=== PATIENT | female | born 1955 | race African-American/Black ===

== ENCOUNTER 2018-04-23 10:21 | Outpatient (CLI) | payer OTHER | END 2018-04-23 10:22 | disposition home or self-care (01) | LOC: BICMAMMO 10:21 | PROVIDERS: ATTEND Student in an Organized Health Care Education/Training Program | DX: Z12.31 Encounter for screening mammogram for malignant neoplasm of breast (principal); Z80.3 Family history of malignant neoplasm of breast | CPT/HCPCS: 77067 ==

== ENCOUNTER 2019-04-25 10:53 | Outpatient (CLI) | payer OTHER ==
--- NOTE | 2019-04-25 12:03 | MMO ---
Bilateral MAMMO Bilat Screen [facility]DI. CLINICAL HISTORY: Patient is 64 years old and is seen for screening. The patient has the following family history of breast cancer: cousin female. The patient has no personal history of cancer. The patient has a history of left Excisional Biopsy in 2001 - benign. VIEWS: The views performed were: bilateral craniocaudal and bilateral mediolateral oblique. FILMS COMPARED: The present examination has been compared to prior imaging studies performed at [facility] on 04/16/2014, 04/17/2015, 04/19/2016 and 04/20/2017. This study has been interpreted with the assistance of computer-aided detection. MAMMOGRAM FINDINGS: There are scattered fibroglandular densities. There is a stable mass with associated calcifications seen in the upper-outer region of the left breast. There are no suspicious masses, suspicious calcifications, or new areas of architectural distortion. IMPRESSION: THERE IS NO MAMMOGRAPHIC EVIDENCE OF MALIGNANCY. A ROUTINE FOLLOW-UP MAMMOGRAM IN 1 YEAR IS RECOMMENDED. ACR BI-RADS Category 2 - Benign finding MAMMOGRAPHY NOTE: 1. A negative mammogram report should not delay a biopsy if a dominant of clinically suspicious mass is present. 2. Approximately 10% to 15% of breast cancers are not detected by mammography. 3. Adenosis and dense breasts may obscure an underlying neoplasm. Reported by: TRUDY BLEDSOE MD Electonically Signed: [id number]
== END 2019-04-25 10:54 | disposition home or self-care (01) ==
LOC: BICMAMMO 10:53
PROVIDERS: ATTEND Student in an Organized Health Care Education/Training Program
DX: Z12.31 Encounter for screening mammogram for malignant neoplasm of breast (principal); Z91.89 Other specified personal risk factors, not elsewhere classified; Z80.3 Family history of malignant neoplasm of breast
CPT/HCPCS: 77067

== ENCOUNTER 2020-04-27 11:32 | Outpatient (CLI) | payer OTHER ==
--- NOTE | 2020-04-27 13:27 | MMO ---
Bilateral MAMMO Bilat Screen [facility]DI+[facility]. CLINICAL HISTORY: Patient is 65 years old and is seen for screening. The patient has the following family history of breast cancer: cousin female. The patient has no personal history of cancer. The patient has a history of left Excisional Biopsy in 2001 - benign. VIEWS: The views performed were: bilateral craniocaudal with tomosynthesis and bilateral mediolateral oblique with tomosynthesis. FILMS COMPARED: The present examination has been compared to prior imaging studies performed at [facility] on 04/17/2015, 04/19/2016, 04/20/2017 and 04/25/2019. This study has been interpreted with the assistance of computer-aided detection. MAMMOGRAM FINDINGS: There are scattered fibroglandular densities. There are benign appearing calcifications seen in both breasts. There are no suspicious masses, suspicious calcifications, or new areas of architectural distortion. IMPRESSION: THERE IS NO MAMMOGRAPHIC EVIDENCE OF MALIGNANCY. A ROUTINE FOLLOW-UP MAMMOGRAM IN 1 YEAR IS RECOMMENDED. THE RESULTS OF THIS EXAM WERE SENT TO THE PATIENT. ACR BI-RADS Category 2 - Benign finding MAMMOGRAPHY NOTE: 1. A negative mammogram report should not delay a biopsy if a dominant of clinically suspicious mass is present. 2. Approximately 10% to 15% of breast cancers are not detected by mammography. 3. Adenosis and dense breasts may obscure an underlying neoplasm. Reported by: DENYS MORROW MD Electonically Signed: [id number]
== END 2020-04-27 11:33 | disposition home or self-care (01) ==
LOC: BICMAMMO 11:32
PROVIDERS: ATTEND Family Medicine
DX: Z12.31 Encounter for screening mammogram for malignant neoplasm of breast (principal); Z80.3 Family history of malignant neoplasm of breast; Z91.89 Other specified personal risk factors, not elsewhere classified
CPT/HCPCS: 77063; 77067

== ENCOUNTER 2020-08-04 09:44 | Observation (INO) | payer OTHER ==
[2020-08-04] MEDS ORDERED: Aspirin Chewable 81 MG TAB ONE (10:03)
[2020-08-04] MEDS ORDERED: Nitroglycerin 2% Ointment 1 INCH/1 GM Packet ONE (10:03)
[2020-08-04 10:11] LABS: #Basophils 0.1 thou/uL (0.0-0.2); #Eosinphils 0.1 thou/uL (0.0-0.7); #Monocytes 0.3 thou/uL (0.11-0.59); #Neutrophils 4.3 thou/uL (1.40-6.50); %Eosinophils 1.3 % (0.0-10.0); %Lymphocytes 45.3 % (21.0-51.0); %Neutrophils 49.5 % (42.0-75.0); Hemoglobin 13.2 g/dL (12.0-16.0); Mean Corpuscular HGB CONC 31.8 g/dL (32.0-36.0); Mean Corpuscular Volume 84.9 fL (78.0-98.0); Platelet Count 171 thou/uL (130-400); RBC Distribution Width 14.3 % (11.5-14.5); Red Blood Cell (RBC) Count 4.88 mill/uL (4.20-5.40); White Blood Cell (WBC) Count 8.7 thou/uL (4.8-10.8)
--- NOTE | 2020-08-04 10:17 | RAD ---
RADIOGRAPH CHEST 1 VIEW: DATE: 08/04/2020 HISTORY: 65-year-old female with chest pain and hypertension FINDINGS: There are no airspace densities, pulmonary edema, pneumothorax, or cardiomegaly. The lateral costophr enic angles are sharp. IMPRESSION: No acute cardiopulmonary findings.
[2020-08-04] MEDS ORDERED: Iopamidol-370 76% 500 ML 1 ML ONE (10:28)
[2020-08-04 10:40] LABS: ALT (SGPT) 23 U/L (8-55); AST (SGOT) 18 U/L (5-34); Albumin 4.4 g/dL (3.4-4.8); Alkaline Phosphatase 72 U/L (40-110); Anion Gap 14 mmol/L (10-20); BUN (Urea Nitrogen) 9 mg/dL (9.8-20.1); Bilirubin, Total 0.2 mg/dL (0.2-1.2); Calc. Creatinine Clearance 0 mL/min (70-130); Calcium 9.3 mg/dL (7.8-10.44); Carbon Dioxide 27 mmol/L (23-31); Chloride 106 mmol/L (98-107); Globulin 3.3 g/dL (2.4-3.5); Glucose 160 mg/dL (80-115); Potassium 4.1 mmol/L (3.5-5.1); Protein, Total 7.7 g/dL (5.8-8.1); Sodium 143 mmol/L (136-145)
--- NOTE | 2020-08-04 11:02 | CT ---
EXAM: CTA of the chest HISTORY: Substernal chest pain COMPARISON: None TECHNIQUE: Multiple contiguous axial images were obtained a CTA of the chest with contrast per pulmon jose embolism protocol. 3-D oblique MIP reformats and direct coronal reformats were performed. FINDINGS: HEART: Biventricular cardiomegaly with hypertrophy of the left ventricular wall. There is a trace per icardial effusion. PULMONARY ARTERIES: Normal in caliber without filling defects to suggest pulmonary emboli. MEDIASTINUM: No hilar or mediastinal lymphadenopathy. LUNGS: No focal infiltrates or masses. PLEURAL SPACE: No pleural effusion or pneumothorax. CHEST WALL SOFT TISSUES: Unremarkable VISUALIZED OSSEOUS STRUCTURES: Degenerative changes in the spine. VISUALIZED SUBDIAPHRAGMATIC STRUCTURES: Unremarkable IMPRESSION: No evidence of pulmonary thromboembolism
[2020-08-04 11:18] LABS: Bilirubin Negative (Negative); Blood, Urine Negative (Negative); Clarity Clear (Clear); Glucose, Urine (Dipstick) Normal (Negative); Ketone, Urine Negative (Negative); Leukocyte Negative Leu/uL (Negative); Nitrite Negative (Negative); Protein, Urine (Dipstick) Negative (Neg-Trace); Specific Gravity, Urine 1.027 (1.002-1.036); Urobilinogen Normal mg/dL (Less than 2)
[2020-08-04] MEDS ORDERED: Diltiazem HCl 125 MG, Admixture Fee 1 EACH in Sodium Chloride 0.9% 100 ML IVPB SCH (12:00)
[2020-08-04 12:15] LABS: Amphetamine Not Detected (NotDetected); Barbiturates Screen Not Detected (NotDetected); Benzodiazepine Screen Not Detected (NotDetected); Cocaine Metabolite Screen Not Detected (NotDetected); Medtox Reader # READER 4; Methadone Not Detected (NotDetected); Methamphetamine Not Detected (NotDetected); Opiate Screen Not Detected (NotDetected); Phencyclidine (PCP) Not Detected (NotDetected); THC/Cannabinoid Screen Not Detected (NotDetected); Tricyclic Screen Not Detected (NotDetected)
[2020-08-04 12:16] LABS: Medtox Control Line Valid? VALID (VALID); Oxycodone Screen Not Detected (NotDetected)
[2020-08-04 13:51] LABS: Troponin I Less than 0.010 ng/mL (< 0.028)
[2020-08-04] MEDS ORDERED: Nitroglycerin 0.4 MG TAB (25 Tab Bottle) SL PRN (14:47)
[2020-08-04] MEDS ORDERED: Acetaminophen 325 MG TAB PO PRN (14:47)
[2020-08-04] MEDS ORDERED: Ondansetron ODT 4 MG TAB PO PRN (14:47)
--- NOTE | 2020-08-04 14:47 | PDOC.FPRHP ---
- History of Present Illness Chief Complaint: chest pain History of Present Illness: 65 y/o F with PMHx HTN, HLD, T2DM, obesity, asthma presents for chest pain. Reports upon awaking this AM she felt substernal chest tightness that did not radiate. Associated wheezing without SOB. Pain was not exertional, was not improved with several hours of resting this AM. She took her blood pressure at home, reports it was wnl but her heart rate was 106 which concerned her and why she came to ER. Has not been using her albuterol inhaler today. Has not had similar chest pain in the past. Did not take any medications prior to ER arrival for chest pain today. Previously seen by Dr. Crawford bus washer at [facility] - had cath in 2014 that was reportedly wnl. Hx of AUNDREA, has CPAP but does not wear because it sprays water into her nose. Otherwise reports medication compliance. No known sick contacts. ED Course: ED course: nitro, ASA, 500 cc bolus, diltazem bolus + gtt - Allergies/Adverse Reactions Allergies Allergy/AdvReac Type Severity Reaction Status Date / Time No Known Allergies Allergy Unverified 09/02/19 09:18 - Home Medications Medication Instructions Recorded Confirmed Type Albuterol Sulfate [Proventil Hfa] 2 puff INH Q4H PRN 09/04/14 08/04/20 History Amlodipine Besylate [amLODIPine 10 mg PO DAILY 09/04/14 08/04/20 History Besylate] Aspirin [Aspirin EC] 81 mg PO DAILY 09/04/14 08/04/20 History Atorvastatin Calcium 40 mg PO QPM 09/04/14 08/04/20 History Cetirizine HCl [Zyrtec] 10 mg PO QPM 09/04/14 08/04/20 History Fluticasone Propionate 1 spray EA NARE DAILY 09/04/14 08/04/20 History [Fluticasone Propionate Nasal Happy] Lisinopril 40 mg PO DAILY 09/04/14 08/04/20 History Montelukast Sodium [Singulair] 10 mg PO DAILY 09/04/14 08/04/20 History metFORMIN HCl 1,000 mg PO BID-WM 09/04/14 08/04/20 History Bimatoprost [Lumigan] 1 drop EA EYE DAILY 08/04/20 08/04/20 History Carvedilol [Coreg] 6.25 mg PO BID 08/04/20 08/04/20 History Liraglutide [Victoza 2-Pedrito] 1.8 mg SC DAILY 08/04/20 08/04/20 History Olopatadine HCl 1 drop EA EYE BID 08/04/20 08/04/20 History Timolol Maleate [Timolol Maleate 1 drop EA EYE BID 08/04/20 08/04/20 History 0.5% Ophth SolN] - History PMHx: htn, hld, t2dm, AUNDREA, hx iron deficiency anemia, hx syphilis s/p treatment, hx uterine fibroid PSHx: hysterectomy, tubal ligation FHx: lung cancer (both parents), paternal heart failure, sister heart failure, throat cancer, cousin breast cancer Social: denies tobacco, etoh, drug use; former etoh use in - Review of Systems General: denies: fever/chills, fatigue Eyes: denies: eye pain, vision changes ENT: reports: nasal congestion. denies: rhinorrhea Respiratory: denies: cough, shortness of breath Cardiovascular: reports: chest pain. denies: palpitation, edema Gastrointestinal: reports: constipation. denies: nausea, vomiting, diarrhea, abdominal pain Genitourinary: denies: dysuria, polyuria Skin: denies: rashes Musculoskeletal: denies: pain, arthritis/arthralgias Neurological: denies: syncope, weakness Psychological: reports: depression. denies: anxiety - Vital signs BP: 142/76 HR: 93 RR: 19 Tmax: 98.1 F Pox: 96 % on RA Wt: 108.86 kg - Physical Exam Constitutional: NAD, awake, alert and oriented, other (obese) HEENT: normocephalic and atraumatic, no scleral icterus, grossly normal vision, grossly normal hearing, MMM, other (edentulous, bilateral conjunctival injection) Neck: supple, no LAD Heart: RRR, no murmurs/rubs/gallops, pulses present, no edema Lungs: no respiratory distress, good air movement, no wheezing, no retractions, other (occasional rhonchi bilaterally) Abdomen: soft, non-tender, bowel sounds present Musculoskeletal: normal structure, ROM grossly normal Neurological: no focal deficit Skin: no rash/lesions, good turgor, capillary refill <2 seconds Heme/Lymphatic: no unusual bruising or bleeding Psychiatric: normal mood and affect, good judgment and insight, intact recent and remote memory FMR H&P: Results - Labs Result Diagrams: 08/04/20 09:50 08/04/20 09:50 Lab results: WBC 8.7 thou/uL (4.8-10.8) 08/04/20 09:50 Hgb 13.2 g/dL (12.0-16.0) 08/04/20 09:50 Hct 41.4 % (36.0-47.0) 08/04/20 09:50 MCV 84.9 fL (78.0-98.0) 08/04/20 09:50 Plt Count 171 thou/uL (130-400) 08/04/20 09:50 Neutrophils % 49.5 % (42.0-75.0) 08/04/20 09:50 Sodium 143 mmol/L (136-145) 08/04/20 09:50 Potassium 4.1 mmol/L (3.5-5.1) 08/04/20 09:50 Chloride 106 mmol/L (98-107) 08/04/20 09:50 Carbon Dioxide 27 mmol/L (23-31) 08/04/20 09:50 BUN 9 mg/dL (9.8-20.1) L 08/04/20 09:50 Creatinine 0.66 mg/dL (0.6-1.1) 08/04/20 09:50 Glucose 160 mg/dL (80-115) H 08/04/20 09:50 Calcium 9.3 mg/dL (7.8-10.44) 08/04/20 09:50 Total Bilirubin 0.2 mg/dL (0.2-1.2) 08/04/20 09:50 AST 18 U/L (5-34) 08/04/20 09:50 ALT 23 U/L (8-55) 08/04/20 09:50 Alkaline Phosphatase 72 U/L (40-110) 08/04/20 09:50 B-Natriuretic Peptide 25.1 pg/mL (0-100) 08/04/20 09:50 Serum Total Protein 7.7 g/dL (5.8-8.1) 08/04/20 09:50 Albumin 4.4 g/dL (3.4-4.8) 08/04/20 09:50 Urine Ketones Negative mg/dL (Negative) 08/04/20 11:02 Urine Blood Negative (Negative) 08/04/20 11:02 Urine Nitrite Negative (Negative) 08/04/20 11:02 Ur Leukocyte Esterase Negative [place]/uL (Negative) 08/04/20 11:02 - EKG Interpretation EKG: EKG: sinus rhythm, rate 70s after diltiazem; initial EKG HR 150 FMR H&P: A/P - Plan Atypical chest pain, ACS r/o Tachycardia EKG with rate 150s on presentation to the ED, with possible SVT. s/p diltiazem bolus + gtt in ED, converted to NSR. Repeat EKG with unusual p axis - some inverted p waves, rate improved to 70s and otherwise appears to be regular. Troponin neg x2 and symptoms resolved. Unclear etiology for symptoms. Also consider CPAP non-compliance, asthma exacerbation for possible etiology. Elevated D-dimer in ED, negative CTA. Heart score 4. - admit to obs, monitor on tele - will get stress test in AM - stat EKG and nitro for recurrent chest pain - continue home statin, ACEi - will hold BB for in AM for stress - f/u TSH, lipid panel, A1c AUNDREA Non-compliance with CPAP at home - recommend outpatient pulm f/u to adjust CPAP settings HTN Normotensive. - continue home regimen: coreg, lisinopril, amlodipine HLD - continue home statin - f/u lipid panel T2DM Reportedly well controlled. - continue home metformin, victoza Hx syphilis, treated Hx iron deficiency anemia, labs wnl here Dispo: tele obs, eLOS <48h; likely DC to home if stress test wnl FMR H&P: Upper Level - Pertinent history S: 65yo F presented to ED with chest pain. She states it was substernal and lasted about 15 minutes. She denied any associated symptoms. Had a cath in 2014 for an abnormal stress that was normal. Denies any dyspnea, orthopnea, radiating pain, N/V. Denies any recent illness. Is obese with DM II, HLD, HTN. - Pertinent findings O: Constitutional: NAD HEENT: Normal dentition Heart: RRR, no murmur Lungs: CTAB Abd: Non distended, non tender Ext: No edema or cyanosis Skin: No rash or erythema A/P ACS R/o - negative trop x2 - EKG initially with SVT, next NSR without signficant abnormalities - S/p dilt ggt with conversion to NSR - Tele monitoring for tachycardia - Stress tomorrow Chronic Medical Conditions - Resume home rx as outlined above Dispo: Admit to tele Alfredo Suárez DO - Plan Date/Time: 08/04/20 2933 I, Alfredo Suárez DO, have evaluated this patient and agree with findings/plan as outlined by internet designer resident. Pertinent changes/additions are listed here. Addendum - Attending - Attending Attestation Date/Time: 08/04/20 [id number] I personally evaluated the patient and discussed the management with Dr. Denny Kang I agree with the History, Examination, Assessment and Plan documented above with any addition or exceptions noted below.
[2020-08-04 16:46] LABS: Hemoglobin A1c 7.4 % (4.0-6.0)
[2020-08-04 17:01] LABS: Cardiac Risk 2.6 (Less than 4.5)
[2020-08-04 22:05] VITALS: BMI 41.1
[2020-08-04] MEDS ORDERED: Dextrose 5% in Water 1,000 ML IV PRN (23:19)
[2020-08-04] MEDS ORDERED: Dextrose 50% Abboject 50 ML SYRINGE SLOW IVP PRN (23:19)
[2020-08-04] MEDS ORDERED: HumaLOG 300 UNITS/3 ML VIAL SC PRN ×2 (23:19)
[2020-08-04] MEDS ORDERED: Acetaminophen 500 MG TAB PO PRN (23:20)
[2020-08-05] MEDS ORDERED: Albuterol 200 PUFF (6.7GM INHALER) INH PRN (00:31)
[2020-08-05] MEDS ORDERED: Atorvastatin Calcium 40 MG TAB PO SCH ×2 (00:45→21:00)
[2020-08-05] MEDS ORDERED: Amlodipine 5 MG TAB PO SCH ×3 (00:45→21:00)
[2020-08-05] MEDS ORDERED: Atorvastatin Calcium 20 MG TAB PO SCH ×2 (00:45→21:00)
[2020-08-05 01:20] LABS: SARS-CoV-2 PCR by NAA Not Detected (NotDetected)
[2020-08-05] MEDS ORDERED: Polyvinyl Alcohol 1.4%/Povidone 0.6% Opth Drops EA EYE PRN (03:44)
--- NOTE | 2020-08-05 06:05 | PDOC.FM ---
- Subjective Subjective: No acute overnight events. Denies any chest pain, palpitations, SOB overnight. Feeling well this AM. - Objective Vital Signs & Weight: Vital Signs (12 hours) Temp Pulse Resp BP Pulse Ox 08/05/20 03:35 98.0 F 89 19 135/61 95 08/05/20 02:59 97 08/05/20 00:00 98.1 F 79 16 153/82 H 97 08/04/20 19:20 98.5 F 93 16 132/68 97 08/04/20 18:55 97.3 F L 86 18 134/78 92 L Weight Weight 105.233 kg I&O: 08/03/20 08/04/20 08/05/20 06:59 06:59 06:59 Intake Total 360 Balance 360 Result Diagrams: 08/04/20 09:50 08/05/20 05:49 EKG Reviewed by me: Yes (NSR 80s-90s on tele overnight) Phys Exam - Physical Examination Constitutional: NAD HEENT: moist MMs Neck: supple Respiratory: no wheezing, no rales, clear to auscultation bilateral Cardiovascular: RRR, no significant murmur Gastrointestinal: soft, non-tender Musculoskeletal: no edema, pulses present Neurological: non-focal, moves all 4 limbs Psychiatric: normal affect, A&O x 3 Skin: normal turgor, cap refill <2 seconds Dx/Plan - Plan Plan: Atypical chest pain, ACS r/o Tachycardia EKG with rate 150s on presentation to the ED, with possible SVT. s/p diltiazem bolus + gtt in ED, converted to NSR. Repeat EKG with unusual p axis - some inverted p waves, rate improved to 70s and otherwise appears to be regular. Troponin neg x2 and symptoms resolved. Unclear etiology for symptoms. Also consider CPAP non-compliance, asthma exacerbation for possible etiology. Elevated D-dimer in ED, negative CTA. Heart score 4. TSH and lipid panel wnl, A1c 7.4. - admit to obs, monitor on tele - stress test pending this AM - stat EKG and nitro for recurrent chest pain - continue home statin, ACEi - will hold BB for in AM for stress AUNDREA Non-compliance with CPAP at home - recommend outpatient pulm f/u to adjust CPAP settings HTN Normotensive. - continue home regimen: coreg, lisinopril, amlodipine - will hold coreg this AM for stress HLD - continue home statin - f/u lipid panel T2DM Suboptimal control, Hga1c 7.4%. - continue home metformin, victoza - f/u outpatient for adjustment of diet/medications Hx syphilis, treated Hx iron deficiency anemia, labs wnl here Dispo: tele obs, eLOS <48h; likely DC to home if stress test wnl Addendum - Attending - Attending Attestation Date/Time: 08/05/20 1034 I personally evaluated the patient and discussed the management with Dr. Hartmann. I agree with the History, Examination, Assessment and Plan documented above with any addition or exceptions noted below.
[2020-08-05 06:33] LABS: Anion Gap 15 mmol/L (10-20); BUN (Urea Nitrogen) 7 mg/dL (9.8-20.1); Calc. Creatinine Clearance 157 mL/min (70-130); Calcium 9.1 mg/dL (7.8-10.44); Carbon Dioxide 25 mmol/L (23-31); Chloride 106 mmol/L (98-107); Glucose 134 mg/dL (80-115); Potassium 3.8 mmol/L (3.5-5.1); Sodium 142 mmol/L (136-145)
[2020-08-05] MEDS ORDERED: metFORMIN 500 MG TAB PO SCH (08:00)
[2020-08-05] MEDS ORDERED: Ketotifen Fumarate 0.025% Ophth Soln 5 ml Bottle EA EYE SCH (09:00)
[2020-08-05] MEDS ORDERED: Liraglutide [Victoza 2-Pak] 0.6 MG/0.1 ML Pen.Injctr SC SCH (09:00)
[2020-08-05] MEDS ORDERED: Aspirin 81 mg Enteric Coated Tablet PO SCH (09:00)
[2020-08-05] MEDS ORDERED: Famotidine 20 MG TAB PO SCH (09:00)
[2020-08-05] MEDS ORDERED: Timolol 0.5% Ophth Soln 5 ml Bottle EA EYE SCH (09:00)
[2020-08-05] MEDS ORDERED: Lisinopril 20 MG TAB PO SCH (09:00)
[2020-08-05] MEDS ORDERED: Enoxaparin Sodium 40 MG/0.4 ML SYRINGE SC SCH (09:00)
[2020-08-05] MEDS ORDERED: Regadenoson 0.4 MG/5 ML SYRINGE ONE (10:21)
[2020-08-05 12:22] VITALS: BP 137/65; TEMP 98.2
--- NOTE | 2020-08-05 12:32 | NM ---
Radionucleotide stress only myocardial perfusion scan with CT attenuation correction and SPECT imagin g Left ventricular wall motion evaluation and ejection fraction HISTORY: Chest pain. FINDINGS: Lexiscan protocol. Heterogeneous uptake of radiotracer throughout the left ventricular myoc ardium. No focal perfusion defects. QGS analysis of gated SPECT images shows no focal wall motion abnormalities. Ejection fraction calcul ated at 69%. IMPRESSION : No evidence of ischemia. Normal LVEF.
[2020-08-05] MEDS ORDERED: Latanoprost 0.005% Ophth Soln 2.5 ml Bottle EA EYE SCH (21:00)
--- NOTE | 2020-08-06 08:39 | STRESS ---
Acquisition Time: 2020-08-05 10:54:24 Total Exercise Time: 00:01:00 Test Indications: CHEST PAIN Medications: Protocol: LEXISCAN Max HR: 101 BPM 65% of Pred: 155 BPM Max BP: 126/078 mmHG Max Work Load: 1.0 METS RESTING ECG: NORMAL SINUS RHYTHM AT 85 BPM WITH POOR R-WAVE PROGRESSION SYMPTOMS: NONE NORMAL BP RESPONSE ECTOPY: NONE ECG STRESS: NO SIGNFICANT CHANGES INTERPRETATION: NEGATIVE ECG/AWAIT NUCLEAR IMAGES FOR DEFINITIVE DIAGNOSIS Confirmed by DR. Karen BUSCH ([id number]), movie editor JULIÁN GARCIA ([id number]) on 08/06/2020 8:39:14 AM Referred By: DO. Roque BE Confirmed By:DR. Karen BUSCH
== END 2020-08-05 13:47 | disposition home or self-care (01) ==
LOC: ERS 09:44 → ERHOLD 13:53 → 3SE 18:20
PROVIDERS: ADMIT Family Medicine; ATTEND Family Medicine
DX: R07.89 Other chest pain (principal); R00.0 Tachycardia, unspecified; G47.33 Obstructive sleep apnea (adult) (pediatric); I10 Essential (primary) hypertension; E78.5 Hyperlipidemia, unspecified; E11.9 Type 2 diabetes mellitus without complications; J45.909 Unspecified asthma, uncomplicated; E66.9 Obesity, unspecified; Z68.41 Body mass index [BMI] 40.0-44.9, adult; Z79.82 Long term (current) use of aspirin; Z79.84 Long term (current) use of oral hypoglycemic drugs; Z79.899 Other long term (current) drug therapy; Z20.822 Contact with and (suspected) exposure to COVID-19
CPT/HCPCS: 36415; 36416; 71045; 71275; 78452; 80048; 80053; 80061; 80306; 81003; 83036; 83880; 84443; 84484; 85025; 85379; 87635; 93005; 93017; 94760; 96365; 96376; A9500; G0378; J2785; J3490; Q9967; U0003; U0005

== ENCOUNTER 2020-09-08 19:30 | Outpatient (CLI) | payer OTHER | END 2020-09-08 19:31 | disposition home or self-care (01) | LOC: SLEEPLAB 19:30 | PROVIDERS: ATTEND Family Medicine | DX: G47.33 Obstructive sleep apnea (adult) (pediatric) (principal); R53.83 Other fatigue; E66.9 Obesity, unspecified | CPT/HCPCS: 95811 ==

== ENCOUNTER 2020-09-30 09:53 | Outpatient (CLI) | payer OTHER | END 2020-09-30 09:54 | disposition home or self-care (01) | LOC: CTENTCT 09:53 | PROVIDERS: ATTEND Specialist | DX: G50.1 Atypical facial pain (principal) | CPT/HCPCS: 70486 ==

== ENCOUNTER 2021-05-05 12:00 | Outpatient (CLI) | payer MEDICARE, OTHER | END 2021-05-05 12:01 | disposition home or self-care (01) | LOC: BICMAMMO 12:00 | PROVIDERS: ATTEND Family Medicine | DX: Z12.31 Encounter for screening mammogram for malignant neoplasm of breast (principal); Z80.3 Family history of malignant neoplasm of breast | CPT/HCPCS: 77067 ==

== ENCOUNTER 2022-02-10 10:51 | Outpatient (CLI) | payer OTHER | END 2022-02-10 10:52 | disposition home or self-care (01) | LOC: DTY/OP 10:51 | PROVIDERS: ATTEND Family Medicine | DX: E11.9 Type 2 diabetes mellitus without complications (principal); Z71.3 Dietary counseling and surveillance | CPT/HCPCS: 97802 ==

== ENCOUNTER 2022-07-11 10:18 | Outpatient (CLI) | payer OTHER, MEDICAID | END 2022-07-11 10:19 | disposition home or self-care (01) | LOC: BICMAMMO 10:18 | PROVIDERS: ATTEND Family Medicine | DX: N63.23 Unspecified lump in the left breast, lower outer quadrant (principal); R92.8 Other abnormal and inconclusive findings on diagnostic imaging of breast | CPT/HCPCS: 76642; 77065; G0279 ==

== ENCOUNTER → 2022-07-14 | Day surgery (SDC) | payer OTHER, MEDICAID | END | disposition home or self-care (01) | LOC: BICULT 12:22 | PROVIDERS: ATTEND Family Medicine | PROC: 0H9U3ZX Drainage of Left Breast, Percutaneous Approach, Diagnostic (ICD-10-PCS; principal; 2022-07-14) | PROC: 07B60ZX Excision of Left Axillary Lymphatic, Open Approach, Diagnostic (ICD-10-PCS; 2022-07-14) | DX: C50.812 Malignant neoplasm of overlapping sites of left female breast (principal); R59.0 Localized enlarged lymph nodes; Z17.0 Estrogen receptor positive status [ER+] | CPT/HCPCS: 19083; 38505; 88305; 88342; 88361 ==

== ENCOUNTER 2022-07-29 11:33 | Outpatient (CLI) | payer OTHER, MEDICAID ==
[2022-07-29 14:18] LABS: Anion Gap 14 mmol/L (10-20); BUN (Urea Nitrogen) 10 mg/dL (9.8-20.1); Calc. Creatinine Clearance 0 mL/min (70-130); Calcium 9.6 mg/dL (7.8-10.44); Carbon Dioxide 24 mmol/L (23-31); Chloride 110 mmol/L (98-107); Estimated GFR 88; Glucose 138 mg/dL (80-115); Sodium 144 mmol/L (136-145)
[2022-07-29 14:21] LABS: Hemoglobin 11.6 g/dL (12.0-15.5); Mean Corpuscular HGB CONC 30.1 g/dL (32.0-36.0); Mean Corpuscular Hemoglobin 25.1 pg (27.0-33.0); Mean Corpuscular Volume 83.5 fl (81.6-98.3); Mean Platelet Volume 12.7 fl (7.4-10.4); Platelet Count 201 10x3/uL (150-450); RBC Distribution Width 15.6 % (11.5-14.5); Red Blood Cell (RBC) Count 4.62 10x6/uL (3.90-5.03); White Blood Cell (WBC) Count 6.9 10x3/uL (3.5-10.5)
== END 2022-07-29 11:34 | disposition home or self-care (01) ==
LOC: LABBT 11:33
PROVIDERS: ATTEND Specialist
DX: Z01.818 Encounter for other preprocedural examination (principal); C50.912 Malignant neoplasm of unspecified site of left female breast
CPT/HCPCS: 80048; 85027; 93005; 93010

== ENCOUNTER 2022-08-01 09:49 | Day surgery (SDC) | payer OTHER, MEDICAID ==
[2022-07-29 13:53] VITALS: BMI 35.9
[2022-08-01] MEDS ORDERED: Bupivacaine/Epinephrine 0.25% 30 ML VIAL ONE (10:33)
[2022-08-01] MEDS ORDERED: Lidocaine 1% (PF) 30 ML VIAL ONE (10:33)
[2022-08-01] MEDS ORDERED: Ketorolac Tromethamine 30 MG/ML VIAL ONE (10:47)
[2022-08-01] MEDS ORDERED: Acetaminophen 500 MG TAB ONE (10:47)
[2022-08-01] MEDS ORDERED: fentaNYL PF 100 MCG/2 ML SYRINGE ONE (12:42)
[2022-08-01] MEDS ORDERED: CEFAZOLIN 2 GM VIAL ONE (12:55)
[2022-08-01] MEDS ORDERED: Sodium Chloride 0.9% 100 ML ONE (12:55)
[2022-08-01] MEDS ORDERED: PHENYLEPHRINE-NS 100 MCG/ML 10 ML SYRINGE ONE (13:07)
[2022-08-01] MEDS ORDERED: PROPOFOL 200 MG/20 ML VIAL ONE (13:07)
[2022-08-01] MEDS ORDERED: Lidocaine 1% PF 5 ML VIAL ONE (13:07)
[2022-08-01] MEDS ORDERED: Ondansetron PF 4 MG/2 ML Vial ONE (13:07)
== END 2022-08-01 15:16 | disposition home or self-care (01) ==
LOC: SDC 09:49
PROVIDERS: ATTEND Specialist
PROC: 0JH60WZ Insertion of Totally Implantable Vascular Access Device into Chest Subcutaneous Tissue and Fascia, Open Approach (ICD-10-PCS; principal; 2022-08-01)
PROC: 02HV33Z Insertion of Infusion Device into Superior Vena Cava, Percutaneous Approach (ICD-10-PCS; 2022-08-01)
DX: C50.812 Malignant neoplasm of overlapping sites of left female breast (principal); I10 Essential (primary) hypertension; J45.909 Unspecified asthma, uncomplicated; K21.9 Gastro-esophageal reflux disease without esophagitis; M19.90 Unspecified osteoarthritis, unspecified site; E11.9 Type 2 diabetes mellitus without complications; E78.5 Hyperlipidemia, unspecified; G89.29 Other chronic pain; G47.33 Obstructive sleep apnea (adult) (pediatric); Z17.0 Estrogen receptor positive status [ER+]; Z79.82 Long term (current) use of aspirin; Z79.84 Long term (current) use of oral hypoglycemic drugs; Z79.85 Long-term (current) use of injectable non-insulin antidiabetic drugs; Z79.899 Other long term (current) drug therapy; M54.9 Dorsalgia, unspecified
CPT/HCPCS: 71045; C1788; J1642; J1885; J2001; J2405; J2704; J3490; J7611

== ENCOUNTER 2022-08-18 17:36 | Inpatient (IN) | payer OTHER, MEDICAID ==
[2022-08-18 18:40] LABS: Hemoglobin 12.8 g/dL (12.0-16.0); Mean Corpuscular HGB CONC 31.7 g/dL (32.0-36.0); Mean Corpuscular Hemoglobin 26.1 pg (27.0-31.0); Mean Corpuscular Volume 82.2 fl (78.0-98.0); Mean Platelet Volume 11.3 fL (7.4-10.4); Platelet Count 211 10x3/uL (130-400); RBC Distribution Width 14.9 % (11.5-14.5); White Blood Cell (WBC) Count 36.8 10x3/uL (4.8-10.8)
[2022-08-18] MEDS ORDERED: Cefepime 2 GM VIAL ONE (18:52)
[2022-08-18] MEDS ORDERED: Albumin 25% 25 GM/100 ML BOT IVPB SCH (18:56)
[2022-08-18] MEDS ORDERED: Lactated Ringer's 1,000 ML IV SCH (19:00)
[2022-08-18] MEDS ORDERED: Sodium Bicarbonate 150 MEQ in Dextrose 5% in Water 1,000 ML IV SCH (19:00)
[2022-08-18 19:01] LABS: ALT (SGPT) 13 U/L (8-55); AST (SGOT) 11 U/L (5-34); Albumin 4.1 g/dL (3.4-4.8); Alkaline Phosphatase 149 U/L (40-110); Anion Gap 24 mmol/L (10-20); BUN (Urea Nitrogen) 68 mg/dL (9.8-20.1); Bilirubin, Total 0.2 mg/dL (0.2-1.2); Calc. Creatinine Clearance 0 mL/min (70-130); Calcium 8.4 mg/dL (7.8-10.44); Chloride 106 mmol/L (98-107); Estimated GFR 3; Globulin 3.4 g/dL (2.4-3.5); Glucose 187 mg/dL (80-115); Potassium 3.3 mmol/L (3.5-5.1); Protein, Total 7.5 g/dL (5.8-8.1); Sodium 136 mmol/L (136-145)
[2022-08-18 19:02] LABS: Band 13 % (5-11); Burr Cells SLIGHT = 2-5 cells (100X) (0-1/hpf); Hypochromia SLIGHT = 6-15 cells (100X) (0-5/hpf); Large Platelets SLIGHT; Lymphocytes 14 % (21-51); MDiff Complete? YES; Monocytes 2 % (0-10); Neutrophil 70 % (42-75); Ovalocytes SLIGHT = 2-5 cells (100X) (0-1/hpf); Platelet Morphology Comment Appears Adequate; Polychromasia SLIGHT = 2-3 cells (100X) (0-2/hpf); Reactive Lymphocytes 1 % (0-10)
[2022-08-18 19:09] LABS: Carbon Dioxide 9 mmol/L (23-31)
[2022-08-18 19:47] LABS: CK (CPK) 58 U/L (29-168); Magnesium 1.7 mg/dL (1.6-2.6); Uric Acid 15.3 mg/dL (2.6-6.0)
[2022-08-18 19:53] LABS: Phosphorus 10.1 mg/dL (2.3-4.7)
[2022-08-18] MEDS ORDERED: Febuxostat 40 MG TAB PO SCH (20:45)
[2022-08-18] MEDS ORDERED: RASBURICASE IVPB SCH (21:15)
[2022-08-18] MEDS ORDERED: SODIUM CHLORIDE 0.9% IVPB SCH (21:15)
[2022-08-18 21:55] LABS: Bacteria/HPF 2+ HPF (None Seen); Bilirubin Negative (Negative); Blood, Urine 2+ (Negative); CAUTI Indications for Culture Immunosuppressed; Clarity Turbid (Clear); Glucose, Urine (Dipstick) 100 mg/dL (Negative); Ketone, Urine Negative (Negative); Leukocyte 500 Leu/uL (Negative); Nitrite Negative (Negative); Protein, Urine (Dipstick) 100 mg/dL (Neg-Trace); Specific Gravity, Urine 1.028 (1.002-1.036); Urobilinogen Normal mg/dL (Less than 2); WBC/HPF Greater than 50 HPF (0-3)
[2022-08-18 21:57] LABS: Urine Culture Reflex Yes Yes
[2022-08-18 21:58] LABS: Troponin I 0.019 ng/mL (< 0.028)
[2022-08-18] MEDS: Heparin 5,000 UNITS/ML VIAL SC SCH (22:05)
[2022-08-18] MEDS ORDERED: Albuterol 200 PUFF (6.7GM INHALER) INH PRN (22:12)
[2022-08-18] MEDS ORDERED: Magnesium 2 GM/50 ML(in water) 2 GM in Premix Bag 1 BAG IVPB SCH (22:15)
[2022-08-18 22:26] LABS: Creatinine, Urine 201.13 mg/dL (47-110)
[2022-08-18] MEDS ORDERED: Dextrose 50% Abboject 50 ML SYRINGE SLOW IVP PRN (22:30)
[2022-08-18] MEDS ORDERED: Dextrose 5% in Water 1,000 ML IV PRN (22:30)
[2022-08-18 22:31] LABS: SARS-CoV-2 NAA Rapid Test Not Detected (NotDetected)
[2022-08-18] MEDS: Sodium Bicarbonate 150 MEQ in Dextrose 5% in Water 1,000 ML IV SCH (22:46)
[2022-08-19 00:22] LABS: Albumin 3.6 g/dL (3.4-4.8); BUN (Urea Nitrogen) 66 mg/dL (9.8-20.1); BUN/Creatinine Ratio 5.11; Calc. Creatinine Clearance 6 mL/min (70-130); Calcium 7.4 mg/dL (7.8-10.44); Chloride 113 mmol/L (98-107); Estimated GFR 3; Glucose 147 mg/dL (80-115); Magnesium 1.9 mg/dL (1.6-2.6); Potassium 3.7 mmol/L (3.5-5.1); Sodium 138 mmol/L (136-145); Uric Acid 10.3 mg/dL (2.6-6.0)
[2022-08-19 00:28] LABS: Carbon Dioxide Less than 8 mmol/L (23-31); Phosphorus 9.3 mg/dL (2.3-4.7)
[2022-08-19] MEDS ORDERED: CALCIUM GLUC 1 GM/NS 50 ML 1 GM in Premix Bag 1 BAG IVPB SCH (03:00)
[2022-08-19 03:26] LABS: Actual Bicarbonate (HCO3v) 15 mEq/L (22-28); Base Excess -11.4 mEq/L (-2.0 to +3.0); Calcium, Ionized (venous) 1.01 mmol/L (1.16-1.32); Chloride (VBG) 105 mmol/L (98-106); Hemoglobin (Hb) 10.4 g/dL (11.7-16.1); Sodium 136.1 mmol/L (133-146); pH (venous) 7.26 (7.32-7.43)
[2022-08-19 03:28] LABS: Potassium (VBG) 2.66 mmol/L (3.70-5.30)
[2022-08-19 04:07] LABS: Hemoglobin 9.8 g/dL (12.0-16.0); Mean Corpuscular HGB CONC 33.3 g/dL (32.0-36.0); Mean Corpuscular Hemoglobin 26.9 pg (27.0-31.0); Mean Corpuscular Volume 80.8 fl (78.0-98.0); Mean Platelet Volume 11.6 fL (7.4-10.4); Platelet Count 145 10x3/uL (130-400); RBC Distribution Width 14.5 % (11.5-14.5); Red Blood Cell (RBC) Count 3.65 mill/uL (4.20-5.40); White Blood Cell (WBC) Count 36.4 10x3/uL (4.8-10.8)
[2022-08-19 04:10] LABS: ALT (SGPT) 9 U/L (8-55); AST (SGOT) 11 U/L (5-34); Albumin 3.5 g/dL (3.4-4.8); Alkaline Phosphatase 106 U/L (40-110); Anion Gap 20 mmol/L (10-20); BUN (Urea Nitrogen) 68 mg/dL (9.8-20.1); Bilirubin, Total 0.2 mg/dL (0.2-1.2); Calc. Creatinine Clearance 6 mL/min (70-130); Calcium 7.3 mg/dL (7.8-10.44); Carbon Dioxide 12 mmol/L (23-31); Chloride 108 mmol/L (98-107); Estimated GFR 3; Globulin 2.4 g/dL (2.4-3.5); Glucose 210 mg/dL (80-115); Potassium 2.7 mmol/L (3.5-5.1); Protein, Total 5.9 g/dL (5.8-8.1); Sodium 137 mmol/L (136-145)
[2022-08-19 04:26] LABS: Albumin 3.7 g/dL (3.4-4.8); Anion Gap 22 mmol/L (10-20); Band 5 % (5-11); Calc. Creatinine Clearance 6 mL/min (70-130); Calcium 7.2 mg/dL (7.8-10.44); Carbon Dioxide 10 mmol/L (23-31); Chloride 107 mmol/L (98-107); Estimated GFR 3; Glucose 210 mg/dL (80-115); Lymphocytes 10 % (21-51); MDiff Complete? YES; Monocytes 1 % (0-10); Neutrophil 84 % (42-75); Ovalocytes SLIGHT = 2-5 cells (100X) (0-1/hpf); Phosphorus 8.4 mg/dL (2.3-4.7); Platelet Morphology Comment Appears Adequate; Polychromasia SLIGHT = 2-3 cells (100X) (0-2/hpf); Sodium 136 mmol/L (136-145)
[2022-08-19 04:27] LABS: BUN (Urea Nitrogen) 66 mg/dL (9.8-20.1); BUN/Creatinine Ratio 5.18
[2022-08-19 04:28] LABS: Uric Acid 3.4 mg/dL (2.6-6.0)
[2022-08-19] MEDS ORDERED: Potassium Chloride 20 MEQ in Premix Bag 1 BAG IVPB SCH ×3 (04:30→22:00)
[2022-08-19 04:33] LABS: Potassium 2.6 mmol/L (3.5-5.1)
[2022-08-19] MEDS: Potassium Chloride 20 MEQ in Premix Bag 1 BAG IVPB SCH ×2 (04:36→06:18)
[2022-08-19] MEDS: Sodium Bicarbonate 150 MEQ in Dextrose 5% in Water 1,000 ML IV SCH ×5 (05:26→21:52)
[2022-08-19] MEDS ORDERED: Potassium Chloride 20 MEQ TAB PO SCH ×3 (08:15→21:45)
[2022-08-19] MEDS: Aspirin 81 mg Enteric Coated Tablet PO SCH (08:51)
[2022-08-19] MEDS: Dexamethasone 4 MG TAB PO SCH ×2 (08:51→16:43)
[2022-08-19] MEDS: Montelukast Sodium 10 mg Tablet PO SCH (08:51)
[2022-08-19] MEDS: Famotidine 20 MG TAB PO SCH (08:51)
[2022-08-19] MEDS: Heparin 5,000 UNITS/ML VIAL SC SCH ×3 (08:51→20:50)
[2022-08-19] MEDS ORDERED: FLU VACC QS2022-23(65YR UP)/PF 240 MCG/0.7 ML SYRINGE IM ONE (09:00)
[2022-08-19] MEDS ORDERED: Famotidine 20 MG TAB PO SCH (09:00)
[2022-08-19 09:49] LABS: Anion Gap 19 mmol/L (10-20); BUN (Urea Nitrogen) 65 mg/dL (9.8-20.1); Calc. Creatinine Clearance 7 mL/min (70-130); Calcium 7.3 mg/dL (7.8-10.44); Carbon Dioxide 14 mmol/L (23-31); Chloride 106 mmol/L (98-107); Estimated GFR 3; Glucose 173 mg/dL (80-115); Sodium 136 mmol/L (136-145)
[2022-08-19 10:02] LABS: Potassium 2.6 mmol/L (3.5-5.1)
[2022-08-19] MEDS: Timolol 0.5% Ophth Soln 5 ml Bottle EA EYE SCH ×2 (11:09→20:47)
[2022-08-19] MEDS: Ketotifen Fumarate 0.025% Ophth Soln 5 ml Bottle EA EYE SCH ×2 (11:09→20:47)
[2022-08-19] MEDS: Sevelamer Carbonate 800 MG TAB PO SCH ×2 (12:23→16:43)
[2022-08-19] MEDS: Vancomycin HCl 125 MG/5 ML (BATCHED) UDCUP PO SCH ×2 (13:54→18:10)
[2022-08-19 14:09] LABS: Anion Gap 18 mmol/L (10-20); BUN (Urea Nitrogen) 65 mg/dL (9.8-20.1); Calc. Creatinine Clearance 7 mL/min (70-130); Calcium 7.4 mg/dL (7.8-10.44); Carbon Dioxide 13 mmol/L (23-31); Chloride 107 mmol/L (98-107); Estimated GFR 3; Glucose 242 mg/dL (80-115); Potassium 3.4 mmol/L (3.5-5.1); Sodium 135 mmol/L (136-145)
[2022-08-19 14:15] LABS: Albumin 3.6 g/dL (3.4-4.8); Anion Gap 17 mmol/L (10-20); BUN (Urea Nitrogen) 65 mg/dL (9.8-20.1); BUN/Creatinine Ratio 5.42; Calc. Creatinine Clearance 7 mL/min (70-130); Calcium 7.4 mg/dL (7.8-10.44); Carbon Dioxide 14 mmol/L (23-31); Chloride 107 mmol/L (98-107); Estimated GFR 3; Glucose 245 mg/dL (80-115); Magnesium 1.7 mg/dL (1.6-2.6); Phosphorus 5.3 mg/dL (2.3-4.7); Potassium 3.4 mmol/L (3.5-5.1); Sodium 135 mmol/L (136-145); Uric Acid Less than 2.0 mg/dL (2.6-6.0)
[2022-08-19] MEDS ORDERED: Magnesium 2 GM/50 ML(in water) 2 GM in Premix Bag 1 BAG IVPB SCH (16:30)
[2022-08-19] MEDS: HumaLOG 300 UNITS/3 ML VIAL SC PRN ×2 (18:09→22:28)
[2022-08-19] MEDS: Cefepime 0.5 GM, Admixture Fee 1 EACH in Sodium Chloride 0.9% 100 ML IVPB SCH (19:12)
[2022-08-19 19:34] LABS: Albumin 3.5 g/dL (3.4-4.8); Anion Gap 20 mmol/L (10-20); BUN (Urea Nitrogen) 64 mg/dL (9.8-20.1); BUN/Creatinine Ratio 5.82; Calc. Creatinine Clearance 7 mL/min (70-130); Calcium 7.4 mg/dL (7.8-10.44); Carbon Dioxide 14 mmol/L (23-31); Chloride 105 mmol/L (98-107); Estimated GFR 4; Glucose 321 mg/dL (80-115); Magnesium 2.6 mg/dL (1.6-2.6); Phosphorus 3.7 mg/dL (2.3-4.7); Potassium 2.9 mmol/L (3.5-5.1); Sodium 136 mmol/L (136-145); Uric Acid Less than 2.0 mg/dL (2.6-6.0)
[2022-08-19] MEDS: Atorvastatin Calcium 40 MG TAB PO SCH (20:47)
[2022-08-20] MEDS: Vancomycin HCl 125 MG/5 ML (BATCHED) UDCUP PO SCH ×5 (00:03→23:36)
[2022-08-20] MEDS: Sodium Bicarbonate 150 MEQ in Dextrose 5% in Water 1,000 ML IV SCH (03:00)
[2022-08-20 04:20] LABS: Hemoglobin 9.2 g/dL (12.0-16.0); Mean Corpuscular HGB CONC 33.5 g/dL (32.0-36.0); Mean Corpuscular Hemoglobin 26.7 pg (27.0-31.0); Mean Corpuscular Volume 79.8 fl (78.0-98.0); Mean Platelet Volume 11.5 fL (7.4-10.4); Platelet Count 137 10x3/uL (130-400); RBC Distribution Width 14.6 % (11.5-14.5); Red Blood Cell (RBC) Count 3.43 mill/uL (4.20-5.40); White Blood Cell (WBC) Count 35.7 10x3/uL (4.8-10.8)
[2022-08-20 04:36] LABS: Albumin 3.1 g/dL (3.4-4.8); Anion Gap 16 mmol/L (10-20); BUN (Urea Nitrogen) 64 mg/dL (9.8-20.1); BUN/Creatinine Ratio 6.95; Calc. Creatinine Clearance 9 mL/min (70-130); Calcium 7.6 mg/dL (7.8-10.44); Carbon Dioxide 24 mmol/L (23-31); Chloride 102 mmol/L (98-107); Estimated GFR 4; Glucose 332 mg/dL (80-115); Phosphorus 3.3 mg/dL (2.3-4.7); Potassium 3.2 mmol/L (3.5-5.1); Sodium 139 mmol/L (136-145)
[2022-08-20 04:39] LABS: Band 6 % (5-11); Lymphocytes 7 % (21-51); MDiff Complete? YES; Monocytes 1 % (0-10); Neutrophil 86 % (42-75)
[2022-08-20] MEDS: HumaLOG 300 UNITS/3 ML VIAL SC PRN ×2 (05:03→17:35)
[2022-08-20] MEDS: Lactated Ringer's 1,000 ML IV SCH ×4 (06:31→20:16)
[2022-08-20 06:58] LABS: Albumin 3.3 g/dL (3.4-4.8); Anion Gap 16 mmol/L (10-20); BUN (Urea Nitrogen) 60 mg/dL (9.8-20.1); Calc. Creatinine Clearance 9 mL/min (70-130); Calcium 7.5 mg/dL (7.8-10.44); Carbon Dioxide 23 mmol/L (23-31); Chloride 102 mmol/L (98-107); Estimated GFR 5; Glucose 271 mg/dL (80-115); Phosphorus 3.3 mg/dL (2.3-4.7); Sodium 138 mmol/L (136-145)
[2022-08-20] MEDS ORDERED: Potassium Chloride 20 MEQ TAB PO SCH (08:00)
[2022-08-20] MEDS: Dexamethasone 4 MG TAB PO SCH ×2 (09:28→17:35)
[2022-08-20] MEDS: Aspirin 81 mg Enteric Coated Tablet PO SCH (09:28)
[2022-08-20] MEDS: Montelukast Sodium 10 mg Tablet PO SCH (09:29)
[2022-08-20] MEDS: Heparin 5,000 UNITS/ML VIAL SC SCH ×3 (09:29→20:14)
[2022-08-20] MEDS: Timolol 0.5% Ophth Soln 5 ml Bottle EA EYE SCH ×2 (09:29→20:14)
[2022-08-20] MEDS: Ketotifen Fumarate 0.025% Ophth Soln 5 ml Bottle EA EYE SCH ×2 (09:29→20:13)
[2022-08-20] MEDS ORDERED: Insulin NPH Human Isophane 100 UNIT/ML (10 ML VIAL) SC SCH (10:15)
[2022-08-20] MEDS: Potassium Bicarbonate/Cit Ac 20 MEQ TAB PO SCH ×3 (10:59→20:15)
[2022-08-20 15:24] LABS: Albumin 3.4 g/dL (3.4-4.8); Anion Gap 17 mmol/L (10-20); BUN (Urea Nitrogen) 57 mg/dL (9.8-20.1); BUN/Creatinine Ratio 8.26; Calc. Creatinine Clearance 12 mL/min (70-130); Calcium 7.9 mg/dL (7.8-10.44); Carbon Dioxide 23 mmol/L (23-31); Chloride 104 mmol/L (98-107); Estimated GFR 6; Glucose 236 mg/dL (80-115); Phosphorus 2.4 mg/dL (2.3-4.7); Potassium 3.4 mmol/L (3.5-5.1); Sodium 141 mmol/L (136-145)
[2022-08-20] MEDS: Cefepime 0.5 GM, Admixture Fee 1 EACH in Sodium Chloride 0.9% 100 ML IVPB SCH (17:35)
[2022-08-20 18:50] LABS: Albumin 3.2 g/dL (3.4-4.8); Anion Gap 16 mmol/L (10-20); BUN (Urea Nitrogen) 56 mg/dL (9.8-20.1); Calc. Creatinine Clearance 13 mL/min (70-130); Calcium 8.3 mg/dL (7.8-10.44); Carbon Dioxide 25 mmol/L (23-31); Chloride 103 mmol/L (98-107); Estimated GFR 7; Glucose 206 mg/dL (80-115); Phosphorus 2.6 mg/dL (2.3-4.7); Sodium 140 mmol/L (136-145)
[2022-08-20] MEDS: Atorvastatin Calcium 40 MG TAB PO SCH (20:14)
[2022-08-20] MEDS: Insulin NPH Human Isophane 100 UNIT/ML (10 ML VIAL) SC SCH (20:14)
[2022-08-21 01:06] LABS: Albumin 3.2 g/dL (3.4-4.8); Anion Gap 14 mmol/L (10-20); BUN (Urea Nitrogen) 58 mg/dL (9.8-20.1); BUN/Creatinine Ratio 11.35; Calc. Creatinine Clearance 16 mL/min (70-130); Calcium 8.2 mg/dL (7.8-10.44); Carbon Dioxide 26 mmol/L (23-31); Chloride 104 mmol/L (98-107); Estimated GFR 9; Glucose 291 mg/dL (80-115); Potassium 4.1 mmol/L (3.5-5.1); Sodium 140 mmol/L (136-145)
[2022-08-21] MEDS: Lactated Ringer's 1,000 ML IV SCH ×5 (01:39→23:13)
[2022-08-21] MEDS: Vancomycin HCl 125 MG/5 ML (BATCHED) UDCUP PO SCH ×3 (05:52→17:07)
[2022-08-21] MEDS: HumaLOG 300 UNITS/3 ML VIAL SC PRN ×3 (05:52→20:31)
[2022-08-21] MEDS: Famotidine 20 MG TAB PO SCH (05:52)
[2022-08-21 06:16] LABS: Hemoglobin 9.7 g/dL (12.0-16.0); Mean Corpuscular HGB CONC 32.9 g/dL (32.0-36.0); Mean Corpuscular Hemoglobin 26.9 pg (27.0-31.0); Mean Corpuscular Volume 81.8 fl (78.0-98.0); Mean Platelet Volume 10.8 fL (7.4-10.4); Platelet Count 130 10x3/uL (130-400); RBC Distribution Width 14.3 % (11.5-14.5); White Blood Cell (WBC) Count 43.1 10x3/uL (4.8-10.8)
[2022-08-21 06:38] LABS: Albumin 3.4 g/dL (3.4-4.8); Anion Gap 14 mmol/L (10-20); BUN (Urea Nitrogen) 53 mg/dL (9.8-20.1); BUN/Creatinine Ratio 11.94; Calc. Creatinine Clearance 19 mL/min (70-130); Calcium 8.2 mg/dL (7.8-10.44); Carbon Dioxide 26 mmol/L (23-31); Chloride 105 mmol/L (98-107); Estimated GFR 10; Glucose 201 mg/dL (80-115); Phosphorus 2.5 mg/dL (2.3-4.7); Potassium 3.7 mmol/L (3.5-5.1); Sodium 141 mmol/L (136-145)
[2022-08-21 07:02] LABS: Band 1 % (5-11); Lymphocytes 3 % (21-51); MDiff Complete? YES; Metamyelocyte 1 % (0-0); Monocytes 2 % (0-10); Neutrophil 93 % (42-75); Platelet Morphology Comment Appears Adequate; Polychromasia SLIGHT = 2-3 cells (100X) (0-2/hpf)
[2022-08-21] MEDS: Insulin NPH Human Isophane 100 UNIT/ML (10 ML VIAL) SC SCH ×2 (09:07→20:31)
[2022-08-21] MEDS: Montelukast Sodium 10 mg Tablet PO SCH (09:08)
[2022-08-21] MEDS: Timolol 0.5% Ophth Soln 5 ml Bottle EA EYE SCH ×2 (09:08→20:30)
[2022-08-21] MEDS: Dexamethasone 4 MG TAB PO SCH (09:08)
[2022-08-21] MEDS: Ketotifen Fumarate 0.025% Ophth Soln 5 ml Bottle EA EYE SCH ×2 (09:08→20:30)
[2022-08-21] MEDS: Aspirin 81 mg Enteric Coated Tablet PO SCH (09:08)
[2022-08-21] MEDS: Heparin 5,000 UNITS/ML VIAL SC SCH ×3 (09:08→20:31)
[2022-08-21] MEDS ORDERED: Insulin NPH Human Isophane 100 UNIT/ML (10 ML VIAL) SC SCH (10:15)
[2022-08-21] MEDS ORDERED: Amlodipine 10 MG TAB PO SCH ×2 (16:15→21:00)
[2022-08-21 18:09] LABS: Albumin 3.1 g/dL (3.4-4.8); Anion Gap 13 mmol/L (10-20); BUN (Urea Nitrogen) 48 mg/dL (9.8-20.1); Calc. Creatinine Clearance 29 mL/min (70-130); Calcium 8.4 mg/dL (7.8-10.44); Carbon Dioxide 26 mmol/L (23-31); Chloride 106 mmol/L (98-107); Estimated GFR 17; Glucose 203 mg/dL (80-115); Phosphorus 2.4 mg/dL (2.3-4.7); Potassium 3.6 mmol/L (3.5-5.1); Sodium 141 mmol/L (136-145)
[2022-08-21] MEDS: Atorvastatin Calcium 40 MG TAB PO SCH (20:30)
[2022-08-22] MEDS: Vancomycin HCl 125 MG/5 ML (BATCHED) UDCUP PO SCH ×2 (00:45→06:10)
[2022-08-22 01:18] LABS: Albumin 3.2 g/dL (3.4-4.8); Anion Gap 13 mmol/L (10-20); BUN (Urea Nitrogen) 52 mg/dL (9.8-20.1); BUN/Creatinine Ratio 19.05; Calc. Creatinine Clearance 31 mL/min (70-130); Calcium 8.6 mg/dL (7.8-10.44); Carbon Dioxide 27 mmol/L (23-31); Chloride 107 mmol/L (98-107); Estimated GFR 19; Glucose 243 mg/dL (80-115); Phosphorus 2.2 mg/dL (2.3-4.7); Potassium 3.7 mmol/L (3.5-5.1); Sodium 143 mmol/L (136-145)
[2022-08-22] MEDS: Lactated Ringer's 1,000 ML IV SCH ×3 (03:51→16:45)
[2022-08-22] MEDS: HumaLOG 300 UNITS/3 ML VIAL SC PRN ×2 (06:10→16:51)
[2022-08-22 06:57] LABS: Hemoglobin 8.9 g/dL (12.0-16.0); Mean Corpuscular HGB CONC 31.7 g/dL (32.0-36.0); Mean Corpuscular Hemoglobin 26.6 pg (27.0-31.0); Mean Corpuscular Volume 83.7 fl (78.0-98.0); Mean Platelet Volume 11.5 fL (7.4-10.4); Platelet Count 110 10x3/uL (130-400); RBC Distribution Width 14.5 % (11.5-14.5); Red Blood Cell (RBC) Count 3.33 mill/uL (4.20-5.40); White Blood Cell (WBC) Count 38.4 10x3/uL (4.8-10.8)
[2022-08-22 06:58] LABS: Albumin 3.1 g/dL (3.4-4.8); Anion Gap 14 mmol/L (10-20); BUN (Urea Nitrogen) 45 mg/dL (9.8-20.1); Calc. Creatinine Clearance 39 mL/min (70-130); Calcium 8.2 mg/dL (7.8-10.44); Carbon Dioxide 25 mmol/L (23-31); Chloride 107 mmol/L (98-107); Estimated GFR 23; Glucose 161 mg/dL (80-115); Phosphorus 2.6 mg/dL (2.3-4.7); Potassium 3.6 mmol/L (3.5-5.1); Sodium 142 mmol/L (136-145)
[2022-08-22 08:04] LABS: Band 11 % (5-11); Lymphocytes 11 % (21-51); MDiff Complete? YES; Metamyelocyte 1 % (0-0); Monocytes 4 % (0-10); Neutrophil 73 % (42-75); Platelet Morphology Comment Appears Decreased; Polychromasia SLIGHT = 2-3 cells (100X) (0-2/hpf)
[2022-08-22] MEDS: Heparin 5,000 UNITS/ML VIAL SC SCH ×3 (09:09→21:58)
[2022-08-22] MEDS: Ketotifen Fumarate 0.025% Ophth Soln 5 ml Bottle EA EYE SCH ×2 (09:09→21:57)
[2022-08-22] MEDS: Montelukast Sodium 10 mg Tablet PO SCH (09:10)
[2022-08-22] MEDS: Aspirin 81 mg Enteric Coated Tablet PO SCH (09:10)
[2022-08-22] MEDS: Insulin NPH Human Isophane 100 UNIT/ML (10 ML VIAL) SC SCH ×2 (09:11→21:58)
[2022-08-22] MEDS: Famotidine 20 MG TAB PO SCH (09:11)
[2022-08-22] MEDS: Timolol 0.5% Ophth Soln 5 ml Bottle EA EYE SCH ×2 (09:12→21:57)
[2022-08-22 12:38] LABS: Bacteria/HPF None Seen HPF (None Seen); Bilirubin Negative (Negative); Blood, Urine Negative (Negative); CAUTI Indications for Culture Acute Hematuria; Clarity Clear (Clear); Glucose, Urine (Dipstick) Normal (Negative); Ketone, Urine Negative (Negative); Leukocyte Negative Leu/uL (Negative); Nitrite Negative (Negative); Protein, Urine (Dipstick) 10 mg/dL (Neg-Trace); RBC/HPF 0-3 HPF (0-3); Specific Gravity, Urine 1.013 (1.002-1.036); Squamous Epithelial 0-3 HPF (0-3); Urobilinogen Normal mg/dL (Less than 2); WBC/HPF 0-3 HPF (0-3); pH, Urine 6.5 (5.0-9.0)
[2022-08-22 12:42] LABS: Urine Culture Reflex No No
[2022-08-22] MEDS ORDERED: Amlodipine 10 MG TAB PO SCH (21:00)
[2022-08-22] MEDS: Atorvastatin Calcium 40 MG TAB PO SCH (21:58)
[2022-08-23] MEDS: Lactated Ringer's 1,000 ML IV SCH ×3 (02:49→08:21)
[2022-08-23 04:33] LABS: Hemoglobin 9.2 g/dL (12.0-16.0); Mean Corpuscular HGB CONC 31.4 g/dL (32.0-36.0); Mean Corpuscular Hemoglobin 26.4 pg (27.0-31.0); Mean Corpuscular Volume 83.9 fl (78.0-98.0); Mean Platelet Volume 11.3 fL (7.4-10.4); Platelet Count 92 10x3/uL (130-400); RBC Distribution Width 14.5 % (11.5-14.5); Red Blood Cell (RBC) Count 3.47 mill/uL (4.20-5.40); White Blood Cell (WBC) Count 27.5 10x3/uL (4.8-10.8)
[2022-08-23 04:49] LABS: Anion Gap 9 mmol/L (10-20); BUN (Urea Nitrogen) 35 mg/dL (9.8-20.1); Calc. Creatinine Clearance 67 mL/min (70-130); Calcium 8.4 mg/dL (7.8-10.44); Carbon Dioxide 29 mmol/L (23-31); Chloride 111 mmol/L (98-107); Estimated GFR 44; Glucose 159 mg/dL (80-115); Potassium 3.6 mmol/L (3.5-5.1); Sodium 145 mmol/L (136-145)
[2022-08-23 04:58] LABS: Lymphocytes 20 % (21-51); MDiff Complete? YES; Monocytes 3 % (0-10); Neutrophil 77 % (42-75); Ovalocytes SLIGHT = 2-5 cells (100X) (0-1/hpf); Platelet Morphology Comment Appears Decreased; Schistocytes SLIGHT = 2-5 cells (100X) (0-1/hpf); Stomatocytes SLIGHT = 2-5 cells (100X) (0-1/hpf)
[2022-08-23] MEDS: Famotidine 20 MG TAB PO SCH (09:21)
[2022-08-23] MEDS: Insulin NPH Human Isophane 100 UNIT/ML (10 ML VIAL) SC SCH ×2 (09:21→20:31)
[2022-08-23] MEDS: Timolol 0.5% Ophth Soln 5 ml Bottle EA EYE SCH ×2 (09:21→20:32)
[2022-08-23] MEDS: Empagliflozin 10 MG TAB PO SCH (09:21)
[2022-08-23] MEDS: Ketotifen Fumarate 0.025% Ophth Soln 5 ml Bottle EA EYE SCH ×2 (09:21→20:31)
[2022-08-23] MEDS: Aspirin 81 mg Enteric Coated Tablet PO SCH (09:22)
[2022-08-23] MEDS: Montelukast Sodium 10 mg Tablet PO SCH (09:22)
[2022-08-23] MEDS: Heparin 5,000 UNITS/ML VIAL SC SCH (09:42)
[2022-08-23] MEDS ORDERED: Carvedilol 3.125 MG TAB PO SCH (09:45)
[2022-08-23 16:43] VITALS: BMI 40.6
[2022-08-23] MEDS: Carvedilol 3.125 MG TAB PO SCH (18:30)
[2022-08-23] MEDS: Atorvastatin Calcium 40 MG TAB PO SCH (20:31)
[2022-08-24 08:11] LABS: Anion Gap 12 mmol/L (10-20); BUN (Urea Nitrogen) 26 mg/dL (9.8-20.1); Calc. Creatinine Clearance 78 mL/min (70-130); Calcium 8.4 mg/dL (7.8-10.44); Carbon Dioxide 27 mmol/L (23-31); Chloride 112 mmol/L (98-107); Estimated GFR 52; Glucose 143 mg/dL (80-115); Magnesium 1.2 mg/dL (1.6-2.6); Phosphorus 3.7 mg/dL (2.3-4.7); Potassium 3.6 mmol/L (3.5-5.1); Sodium 147 mmol/L (136-145); Uric Acid Less than 2.0 mg/dL (2.6-6.0)
[2022-08-24] MEDS ORDERED: Magnesium Sulfate In Water 4 GM in Premix Bag 1 BAG IVPB SCH (08:30)
[2022-08-24] MEDS ORDERED: NIFEdipine XL 30 MG TAB PO SCH (09:00)
[2022-08-24] MEDS ORDERED: Magnesium 2 GM/50 ML(in water) 2 GM in Premix Bag 1 BAG IVPB SCH (09:30)
[2022-08-24 09:40] LABS: Band 2 % (5-11); Hemoglobin 9.1 g/dL (12.0-16.0); Hypochromia SLIGHT = 6-15 cells (100X) (0-5/hpf); Lymphocytes 20 % (21-51); MDiff Complete? YES; Mean Corpuscular Hemoglobin 26.3 pg (27.0-31.0); Mean Corpuscular Volume 84.9 fl (78.0-98.0); Mean Platelet Volume 11.5 fL (7.4-10.4); Monocytes 4 % (0-10); Neutrophil 74 % (42-75); Platelet Count 86 10x3/uL (130-400); Platelet Morphology Comment Appears Decreased; Polychromasia SLIGHT = 2-3 cells (100X) (0-2/hpf); RBC Distribution Width 14.6 % (11.5-14.5); Red Blood Cell (RBC) Count 3.45 mill/uL (4.20-5.40); White Blood Cell (WBC) Count 15.9 10x3/uL (4.8-10.8)
[2022-08-24] MEDS: Montelukast Sodium 10 mg Tablet PO SCH (10:27)
[2022-08-24] MEDS: Carvedilol 3.125 MG TAB PO SCH (10:27)
[2022-08-24] MEDS: Aspirin 81 mg Enteric Coated Tablet PO SCH (10:27)
[2022-08-24] MEDS: Famotidine 20 MG TAB PO SCH (10:28)
[2022-08-24] MEDS: Empagliflozin 10 MG TAB PO SCH (10:28)
[2022-08-24] MEDS: Timolol 0.5% Ophth Soln 5 ml Bottle EA EYE SCH (10:35)
[2022-08-24] MEDS: Ketotifen Fumarate 0.025% Ophth Soln 5 ml Bottle EA EYE SCH (10:35)
[2022-08-24] MEDS: Insulin NPH Human Isophane 100 UNIT/ML (10 ML VIAL) SC SCH (10:35)
[2022-08-24 11:59] VITALS: BP 140/63; TEMP 98
== END 2022-08-24 15:36 | disposition home or self-care (01) | DRG 683 ==
LOC: ERS 17:36 → MSONC 18:32 → 2NO 21:02
PROVIDERS: ADMIT Student in an Organized Health Care Education/Training Program; ATTEND Student in an Organized Health Care Education/Training Program
PROC: 30233J1 Transfusion of Nonautologous Serum Albumin into Peripheral Vein, Percutaneous Approach (ICD-10-PCS; principal; 2022-08-18)
DX: N17.9 Acute kidney failure, unspecified (principal); D84.9 Immunodeficiency, unspecified; E87.20 Acidosis, unspecified; I50.30 Unspecified diastolic (congestive) heart failure; E11.9 Type 2 diabetes mellitus without complications; K21.9 Gastro-esophageal reflux disease without esophagitis; E78.5 Hyperlipidemia, unspecified; E86.0 Dehydration; C50.919 Malignant neoplasm of unspecified site of unspecified female breast; G47.33 Obstructive sleep apnea (adult) (pediatric); J45.909 Unspecified asthma, uncomplicated; I95.9 Hypotension, unspecified; E83.39 Other disorders of phosphorus metabolism; E87.6 Hypokalemia; Z20.822 Contact with and (suspected) exposure to COVID-19; D63.8 Anemia in other chronic diseases classified elsewhere; E83.51 Hypocalcemia; I11.0 Hypertensive heart disease with heart failure; T36.8X5A Adverse effect of other systemic antibiotics, initial encounter; Z30.2 Encounter for sterilization; Z98.51 Tubal ligation status; Z90.710 Acquired absence of both cervix and uterus; Z98.890 Other specified postprocedural states; Z79.82 Long term (current) use of aspirin; Z79.51 Long term (current) use of inhaled steroids; Z79.84 Long term (current) use of oral hypoglycemic drugs; Z79.899 Other long term (current) drug therapy
CPT/HCPCS: 36415; 36416; 76770; 80048; 80053; 80069; 81001; 82550; 82570; 82805; 83605; 83735; 83880; 84100; 84156; 84300; 84484; 84540; 84550; 85025; 87040; 87086; 87324; 87449; 87493; 93005; 93010; 96361; 96365; J0611; J0692; J1644; J1815; J2783; J3475; J3480; J3490; J7070; J7120; J8540; P9047; U0002

== ENCOUNTER 2023-02-17 11:37 | Outpatient (CLI) | payer OTHER, MEDICAID ==
[2023-02-17 13:27] LABS: #Eosinphils 0.1 10x3/uL (0.0-0.5); #Monocytes 0.3 10x3/uL (0.0-1.1); #Neutrophils 2.3 10x3/uL (1.5-8.4); %Basophils 0.2 % (0.0-2.0); %Lymphocytes 46.3 % (18.0-47.0); %Monocytes 5.5 % (0.0-10.0); Hematocrit 35.6 % (34.9-44.5); Hemoglobin 10.7 g/dL (12.0-15.5); Mean Corpuscular HGB CONC 30.1 g/dL (32.0-36.0); Mean Corpuscular Hemoglobin 25.5 pg (27.0-33.0); Mean Corpuscular Volume 84.8 fl (81.6-98.3); Platelet Count 166 10x3/uL (150-450); RBC Distribution Width 15.9 % (11.5-14.5); White Blood Cell (WBC) Count 4.9 10x3/uL (3.5-10.5)
[2023-02-17 13:39] LABS: Anion Gap 14 mmol/L (10-20); BUN (Urea Nitrogen) 12 mg/dL (9.8-20.1); Calc. Creatinine Clearance 0 mL/min (70-130); Calcium 9.2 mg/dL (7.8-10.44); Carbon Dioxide 23 mmol/L (23-31); Chloride 108 mmol/L (98-107); Estimated GFR 82; Glucose 187 mg/dL (80-115); Sodium 141 mmol/L (136-145)
== END 2023-02-17 11:38 | disposition home or self-care (01) ==
LOC: LABBT 11:37
PROVIDERS: ATTEND Specialist
DX: Z01.818 Encounter for other preprocedural examination (principal)
CPT/HCPCS: 71046; 80048; 85025; 93005; 93010

== ENCOUNTER 2023-02-21 07:25 | Day surgery (SDC) | payer OTHER, MEDICAID ==
[2023-02-17 12:27] VITALS: BMI 37.2
[2023-02-21] MEDS ORDERED: Acetaminophen 500 MG TAB ONE (09:21)
[2023-02-21] MEDS ORDERED: Ketorolac Tromethamine 30 MG/ML VIAL ONE (09:22)
[2023-02-21] MEDS ORDERED: Isosulfan Blue 50 MG/5 ML VIAL ONE (12:03)
[2023-02-21] MEDS ORDERED: Lidocaine 2% PF 5 ML VIAL ONE (12:03)
[2023-02-21] MEDS ORDERED: EPINEPHrine 1 MG/ML AMP ONE (12:03)
[2023-02-21] MEDS ORDERED: Bupivacaine 0.25% HCL 30 ML VIAL ONE (12:03)
[2023-02-21] MEDS ORDERED: Famotidine/PF 20 mg/2ml Vial ONE (12:47)
[2023-02-21] MEDS ORDERED: fentaNYL PF 100 MCG/2 ML SYRINGE ONE (12:47)
[2023-02-21] MEDS ORDERED: CEFAZOLIN 2 GM VIAL ONE (12:54)
[2023-02-21] MEDS ORDERED: Sodium Chloride 0.9% 100 ML ONE (12:54)
[2023-02-21] MEDS ORDERED: Lidocaine 1% PF 5 ML VIAL ONE (13:05)
[2023-02-21] MEDS ORDERED: PROPOFOL 200 MG/20 ML VIAL ONE (13:05)
[2023-02-21] MEDS ORDERED: Ondansetron PF 4 MG/2 ML Vial ONE (13:05)
[2023-02-21] MEDS ORDERED: PHENYLEPHRINE-NS 100 MCG/ML 10 ML SYRINGE ONE (13:05)
[2023-02-21] MEDS ORDERED: fentaNYL 50 mcg/mL 1 mL Vial ONE (15:18)
[2023-02-21] MEDS ORDERED: HYDROcodone/Acetaminophen 5/325 mg Tablet ONE (15:54)
== END 2023-02-21 16:25 | disposition home or self-care (01) ==
LOC: SDC 07:25
PROVIDERS: ATTEND Specialist
PROC: 0HBU0ZZ Excision of Left Breast, Open Approach (ICD-10-PCS; principal; 2023-02-21)
PROC: 0HB5XZX Excision of Chest Skin, External Approach, Diagnostic (ICD-10-PCS; 2023-02-21)
DX: C50.912 Malignant neoplasm of unspecified site of left female breast (principal); J32.9 Chronic sinusitis, unspecified; I10 Essential (primary) hypertension; J45.909 Unspecified asthma, uncomplicated; M19.90 Unspecified osteoarthritis, unspecified site; E11.9 Type 2 diabetes mellitus without complications; D64.9 Anemia, unspecified; Z90.710 Acquired absence of both cervix and uterus; Z79.899 Other long term (current) drug therapy
CPT/HCPCS: 19301; 38525; 38900; 76098; 78195; 82962; A9541; C1713; J3010; Q9968; 36416; 88307; 88342; J0171; J1885; J2001; J2405; J2704; J3490; S0020; S0028

== ENCOUNTER 2023-03-16 05:59 | Day surgery (SDC) | payer OTHER, MEDICAID ==
[2023-03-15 11:56] VITALS: BMI 37.2
[2023-03-16] MEDS ORDERED: Bupivacaine 0.25% HCL 30 ML VIAL ONE (06:36)
[2023-03-16] MEDS ORDERED: EPINEPHrine 1 MG/ML AMP ONE (06:36)
[2023-03-16] MEDS ORDERED: Ketorolac Tromethamine 30 MG/ML VIAL ONE (07:27)
[2023-03-16] MEDS ORDERED: fentaNYL PF 100 MCG/2 ML SYRINGE ONE ×2 (07:27→07:28)
[2023-03-16] MEDS ORDERED: Dexmedetomidine 200 MCG/2 ML VIAL ONE (07:28)
[2023-03-16] MEDS ORDERED: Famotidine/PF 20 mg/2ml Vial ONE (07:28)
[2023-03-16] MEDS ORDERED: CEFAZOLIN 2 GM VIAL ONE (07:29)
[2023-03-16] MEDS ORDERED: Sodium Chloride 0.9% 100 ML ONE (07:29)
[2023-03-16] MEDS ORDERED: Lidocaine 1% PF 5 ML VIAL ONE (07:40)
[2023-03-16] MEDS ORDERED: ePHEDrine Sulfate 50 MG/10 ML VIAL ONE (07:40)
[2023-03-16] MEDS ORDERED: PHENYLEPHRINE-NS 100 MCG/ML 10 ML SYRINGE ONE (07:40)
[2023-03-16] MEDS ORDERED: PROPOFOL 200 MG/20 ML VIAL ONE (07:40)
[2023-03-16] MEDS ORDERED: Ondansetron PF 4 MG/2 ML Vial ONE (07:40)
[2023-03-16] MEDS ORDERED: Insulin Regular 300 UNITS/3 ML VIAL ONE (07:46)
[2023-03-16] MEDS ORDERED: HYDROcodone/Acetaminophen 5/325 mg Tablet ONE (10:31)
== END 2023-03-16 11:00 | disposition home or self-care (01) ==
LOC: SDC 05:59
PROVIDERS: ATTEND Specialist
PROC: 0HBU0ZZ Excision of Left Breast, Open Approach (ICD-10-PCS; principal; 2023-03-16)
DX: D05.12 Intraductal carcinoma in situ of left breast (principal); I10 Essential (primary) hypertension; J45.909 Unspecified asthma, uncomplicated; E11.9 Type 2 diabetes mellitus without complications; K21.9 Gastro-esophageal reflux disease without esophagitis; Z90.710 Acquired absence of both cervix and uterus; Z79.899 Other long term (current) drug therapy
CPT/HCPCS: 19301; 82962; C1713; 36416; 88307; J0171; J1815; J1885; J2405; J2704; J3490; S0020; S0028

== ENCOUNTER 2023-05-22 15:43 | Outpatient (CLI) | payer OTHER, MEDICAID ==
[2023-05-22 17:46] LABS: #Eosinphils 0.1 10x3/uL (0.0-0.5); #Monocytes 0.3 10x3/uL (0.0-1.1); #Neutrophils 2.7 10x3/uL (1.5-8.4); %Basophils 0.3 % (0.0-2.0); %Eosinophils 1.8 % (0.0-6.0); %Lymphocytes 46.8 % (18.0-47.0); %Monocytes 5.5 % (0.0-10.0); %Neutrophils 45.3 % (40.0-75.0); Hematocrit 35.2 % (34.9-44.5); Hemoglobin 10.7 g/dL (12.0-15.5); Mean Corpuscular HGB CONC 30.4 g/dL (32.0-36.0); Mean Corpuscular Hemoglobin 25.4 pg (27.0-33.0); Mean Corpuscular Volume 83.4 fl (81.6-98.3); Mean Platelet Volume 12.1 fl (7.4-10.4); Platelet Count 222 10x3/uL (150-450); RBC Distribution Width 16.4 % (11.5-14.5); Red Blood Cell (RBC) Count 4.22 10x6/uL (3.90-5.03)
[2023-05-22 18:02] LABS: Anion Gap 16 mmol/L (10-20); BUN (Urea Nitrogen) 7 mg/dL (9.8-20.1); Calc. Creatinine Clearance 0 mL/min (70-130); Calcium 9.6 mg/dL (7.8-10.44); Carbon Dioxide 22 mmol/L (23-31); Chloride 108 mmol/L (98-107); Estimated GFR 83; Glucose 125 mg/dL (80-115); Potassium 4.2 mmol/L (3.5-5.1); Sodium 142 mmol/L (136-145)
== END 2023-05-22 15:44 | disposition home or self-care (01) ==
LOC: LABBT 15:43
PROVIDERS: ATTEND Specialist
DX: Z01.818 Encounter for other preprocedural examination (principal); C50.919 Malignant neoplasm of unspecified site of unspecified female breast
CPT/HCPCS: 71046; 80048; 85025; 93005; 93010

== ENCOUNTER 2023-07-03 13:35 | Outpatient (CLI) | payer OTHER, MEDICAID | END 2023-07-03 13:36 | disposition home or self-care (01) | LOC: ULT 13:35 | PROVIDERS: ATTEND Internal Medicine Hematology & Oncology | DX: Z51.11 Encounter for antineoplastic chemotherapy (principal); C50.812 Malignant neoplasm of overlapping sites of left female breast; I08.1 Rheumatic disorders of both mitral and tricuspid valves | CPT/HCPCS: 93306 ==

== ENCOUNTER 2023-08-11 11:38 | Emergency (ER) | payer OTHER, MEDICAID ==
[2023-08-11] MEDS ORDERED: Tranexamic Acid 1,000 MG/10 ML VIAL ONE (13:18)
[2023-08-11] MEDS ORDERED: Oxymetazoline HCl 0.05% (30 ML BOT) ONE (13:18)
[2023-08-11] MEDS ORDERED: Lidocaine 1% w/Epinephrine 1:100K 20 ML VIAL ONE (13:19)
[2023-08-11 15:10] LABS: #Eosinphils 0.1 thou/uL (0.0-0.7); #Monocytes 0.6 thou/uL (0.11-0.59); #Neutrophils 4.3 thou/uL (1.40-6.50); %Basophils 0.5 % (0.0-1.0); %Eosinophils 1.3 % (0.0-10.0); %Lymphocytes 33.4 % (21.0-51.0); %Monocytes 8.2 % (0.0-10.0); %Neutrophils 56.2 % (42.0-75.0); Hemoglobin 10.5 g/dL (12.0-16.0); Mean Corpuscular HGB CONC 29.2 g/dL (32.0-36.0); Mean Corpuscular Hemoglobin 25.2 pg (27.0-31.0); Mean Corpuscular Volume 86.3 fl (78.0-98.0); RBC Distribution Width 18.9 % (11.5-14.5); Red Blood Cell (RBC) Count 4.17 mill/uL (4.20-5.40); White Blood Cell (WBC) Count 7.7 10x3/uL (4.8-10.8)
[2023-08-11 15:13] LABS: Platelet Count 103 10x3/uL (130-400)
[2023-08-11 15:36] LABS: INR-International Normal Ratio 1.1; Prothrombin Time 14.1 sec (12.0-14.7)
[2023-08-11 15:37] LABS: PTT 44.5 sec (22.9-36.1)
[2023-08-11 15:37] LABS: ALT (SGPT) 38 U/L (8-55); AST (SGOT) 61 U/L (5-34); Alkaline Phosphatase 98 U/L (40-110); Anion Gap 17 mmol/L (10-20); BUN (Urea Nitrogen) 12 mg/dL (9.8-20.1); Bilirubin, Total 0.4 mg/dL (0.2-1.2); Calc. Creatinine Clearance 0 mL/min (70-130); Calcium 9.3 mg/dL (7.8-10.44); Carbon Dioxide 22 mmol/L (23-31); Chloride 104 mmol/L (98-107); Estimated GFR 84; Globulin 4.2 g/dL (2.4-3.5); Glucose 143 mg/dL (80-115); Potassium 3.4 mmol/L (3.5-5.1); Protein, Total 8.2 g/dL (5.8-8.1); Sodium 140 mmol/L (136-145)
== END 2023-08-11 17:45 | disposition home or self-care (01) ==
LOC: ERS 11:38
DX: R04.0 Epistaxis (principal); I10 Essential (primary) hypertension; E11.9 Type 2 diabetes mellitus without complications; E78.5 Hyperlipidemia, unspecified; Z79.899 Other long term (current) drug therapy; Z79.84 Long term (current) use of oral hypoglycemic drugs; Z79.82 Long term (current) use of aspirin
CPT/HCPCS: 30903; 80053; 85025; 85610; 85730; J1642

== ENCOUNTER 2023-10-17 12:21 | Outpatient (CLI) | payer OTHER, MEDICAID | END 2023-10-17 12:22 | disposition home or self-care (01) | LOC: EDBD → ULT 12:21 | PROVIDERS: ATTEND Internal Medicine Hematology & Oncology | DX: Z51.11 Encounter for antineoplastic chemotherapy (principal); C50.812 Malignant neoplasm of overlapping sites of left female breast; I08.1 Rheumatic disorders of both mitral and tricuspid valves | CPT/HCPCS: 93306 ==